=== PATIENT | female | born 1955 | race Caucasian/White ===

== ENCOUNTER 2023-04-05 09:09 | Outpatient (CLI) | payer MEDICARE, SELFPAY ==
--- NOTE | 2023-04-05 10:28 | W.ANESCHARGE ---
Anesthesia Charges Start Date/Time Anesthesia Start Date: 04/05/23 Anesthesia Start Time: 10:00 Stop Date/Time Anesthesia Stop Date: 04/05/23 Anesthesia Stop Time: 10:25
--- NOTE | 2023-04-05 11:09 | W.ANESCHARGE ---
Anesthesia Charges Start Date/Time Anesthesia Start Date: 04/05/23 Anesthesia Start Time: 10:00 Stop Date/Time Anesthesia Stop Date: 04/05/23 Anesthesia Stop Time: 10:25
== END 2023-04-05 09:10 | disposition home or self-care (01) ==
PROVIDERS: PCP Family Medicine; Visit Provider Internal Medicine Gastroenterology
DX: K57.30 Diverticulosis of large intestine without perforation or abscess without bleeding (principal); K63.5 Polyp of colon; Z86.010 Personal history of colon polyps
CPT/HCPCS: 00811; 45380; 88305; J2704